=== PATIENT | female | born 1965 | race Two or more races ===

== ENCOUNTER 2024-05-05 09:29 | Emergency (ER) | payer OTHER ==
[~2024-05-05] VITALS: Ht 160 cm; Wt 81.6 kg
[2024-05-05] MEDS ORDERED: DILTIAZEM 24HR240 MG (10:21)
[2024-05-05] MEDS ORDERED: METFORMIN HCL1000 M3 (10:21)
[2024-05-05] MEDS ORDERED: FARXIGA10 MG (10:21)
[2024-05-05] MEDS ORDERED: ATORVASTATIN CA20 MG (10:21)
[2024-05-05] MEDS ORDERED: ELIQUIS5 MG (10:21)
[2024-05-05] MEDS ORDERED: DICLOFENAC POTA50 M1 (10:21)
[2024-05-05] MEDS ORDERED: OMEPRAZOLE20 MG (10:21)
[2024-05-05] MEDS ORDERED: MONTELUKAST SOD10 MG (10:21)
[2024-05-05] MEDS ORDERED: METOPROLOL SUC100 MG (10:22)
== END 2024-05-05 11:12 | disposition home or self-care (01) ==
LOC: ER 09:32
DX: R60.0 Localized edema (principal); E11.9 Type 2 diabetes mellitus without complications; Z79.84 Long term (current) use of oral hypoglycemic drugs; I49.8 Other specified cardiac arrhythmias; I10 Essential (primary) hypertension; G43.909 Migraine, unspecified, not intractable, without status migrainosus